=== PATIENT | male | born 1985 | race Caucasian/White ===

== ENCOUNTER 2018-02-12 12:19 | Emergency (ER) | payer SELFPAY ==
[2018-02-12 12:31] VITALS: BP 119/77; PULSE 67; TEMP 98.6; O2SAT 100
[2018-02-12 13:15] VITALS: RESP 18
--- NOTE | 2018-02-12 17:00 | C.PDOC ---
History Of Present Illness 32 year old male presents to the emergency department with complaints of redness to his left eye. Patient denies trauma, change in vision, or foreign body sensation. Patient offers no other complaints at this time. Chief Complaint (Nursing): Eye Problem History Per: Patient History/Exam Limitations: no limitations Onset/Duration Of Symptoms: Hrs Current Symptoms Are (Timing): Still Present Quality: Other (redness) Associated Symptoms: Other (redness). denies: Pain, FB Sensation, Itching Past Medical History Reviewed: Historical Data, Nursing Documentation, Vital Signs Vital Signs: Last Vital Signs Temp 98.6 F 02/12/18 12:28 Pulse 67 02/12/18 12:28 Resp 18 02/12/18 13:14 BP 119/77 02/12/18 12:28 Pulse Ox 100 02/12/18 12:28 - Medical History PMH: No Chronic Diseases Surgical History: No Surg Hx Family History: States: No Known Family Hx - Social History Hx Alcohol Use: No Hx Substance Use: No - Immunization History Hx Tetanus Toxoid Vaccination: No Hx Influenza Vaccination: No Hx Pneumococcal Vaccination: No Review Of Systems Except As Marked, All Systems Reviewed And Found Negative. Constitutional: Negative for: Fever, Chills Eyes: Positive for: Redness. Negative for: Pain, Vision Change, Other (foreign body sensation) Gastrointestinal: Negative for: Nausea, Vomiting, Abdominal Pain, Diarrhea Physical Exam - Physical Exam Appears: Well, Non-toxic, No Acute Distress Skin: Normal Color, Warm, Dry Head: Atraumatic, Normacephalic Eye(s): bilateral: Other (conjunctiva injected to the lateral aspect of the left eye, NO discharge), right: Normal Inspection, PERRL, EOMI Nose: Normal Neck: Normal, Supple Chest: Symmetrical Extremity: Bilateral: Atraumatic, Normal Color And Temperature, Normal ROM Neurological/Psych: Oriented x3, Normal Speech, Normal Cognition Gait: Steady ED Course And Treatment O2 Sat by Pulse Oximetry: 100 (RA) Pulse Ox Interpretation: Normal Disposition - Disposition Referrals: [facility] [Outside] [facility] [Outside] Disposition: HOME/ ROUTINE Disposition Time: 13:00 Condition: GOOD Additional Instructions: ANGELA SANTIAGO, thank you for letting us take care of you today. The emergency medical care you received today was directed at your acute symptoms. If you were prescribed any medication, please fill it and take as directed. It may take several days for your symptoms to resolve. Return to the Emergency Department if your symptoms worsen, do not improve, or if you have any other problems. Please contact your doctor or call one of the physicians/clinics you have been referred to that are listed on the Patient Visit Information form that is included in your discharge packet. Bring any paperwork you were given at discharge with you along with any medications you are taking to your follow up visit. Our treatment cannot replace ongoing medical care by a primary care provider outside of the emergency department. Thank you for allowing the [facility] team to be part of your care today. Follow up with the clinic this week for re-evaluation and further management. ANGELA SANTIAGO, lino por dejarnos cuidar de ti irma. La atencin mdica de emergencia que recibi hoy se dirigi a benito sntomas agudos. Si le recetaron algn medicamento, llnelo y tmelo segn las indicaciones. Los sntomas pueden tardar varios quevedo en resolverse. Regrese al Departamento de Emergencias si benito sntomas empeoran, no mejoran o si tiene otros problemas. Comunquese con sahni mdico o llame a anuja de los mdicos / clnicas a los que sher sido referido que figuran en el formulario de Informacin de visita al paciente que se incluye en sahni paquete de farrah. Lleve todos los documentos que le entregaron al momento del farrah junto con todos los medicamentos que est tomando para sahni visita de seguimiento. Nuestro tratamiento no puede reemplazar la atencin mdica continua por parte de un proveedor de atencin primaria fuera del departamento de emergencias. Lino por permitir que el equipo de [facility] sea parte de sahni atencin hoy. Carrington un seguimiento con la clnica esta semana para reevaluar y administrar ms. Prescriptions: Polymyxin/Trimethoprim Sulfate [Polytrim Ophth Soln] 1 drop OS TID #1 bottle Instructions: Conjunctivitis (Pinkeye) (DC) Forms: [employer] (Welsh) Print Language: SINHALA - Clinical Impression Clinical Impression: Conjunctivitis - Scribe Statement The provider has reviewed the documentation as recorded by the Scribe (Wes Jamison) Provider Attestation: All medical record entries made by the Scribe were at my direction and personally dictated by me. I have reviewed the chart and agree that the record accurately reflects my personal performance of the history, physical exam, medical decision making, and the department course for this patient. I have also personally directed, reviewed, and agree with the discharge instructions and disposition.
== END 2018-02-12 13:15 | disposition home or self-care (01) ==
LOC: C.ER 12:19
DX: H10.9 Unspecified conjunctivitis (principal)